=== PATIENT | male | born 1975 | race African-American/Black ===

== ENCOUNTER 2024-07-09 01:33 | Emergency (ER) | payer OTHER, SELFPAY ==
[2024-07-09 01:35] VITALS: BP 207/138; PULSE 112; RESP 16; TEMP 37.4; O2SAT 96; BMI 36.6
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
--- OUTSIDE RECORDS SUMMARY | 2024-07-09 02:24 | XMS_ITS | Clinical Summary ---
Author Organization [facility] Address [address] [place] [address] Care Team Providers Care Licensed Audiologist Name Role Phone Adam Whitney DPIsaiah Primary Care Provider [phone] Allergies No known active allergies Medications losartan-hydroch lorothiazide (HYZAAR) 50-12.5 mg per tablet 11/25/2016 Activ e NIFEdipine (ADALAT CC) 30 MG 24 hr tablet 11/25/2016 Act moose ibuprofen-famoti dine 800-26.6 mg Tab Take 1 tablet by mouth 2 (two) times daily. 60 tablet 3 12/14/2016 Active Social History Tobacco Use Types Packs/Day Years Used Date Smoking Tobacco: Light Smoker Alcohol Use Standard Drinks/Week Comments Yes 0 (1 standard drink = 0.6 oz pur e alcohol) Sex and Gender Information Value Date Recorded Sex Assigned at Not on file Legal Sex Male 3:32 PM EDT Gender Identity Not on file Sexual Orientation Not on file Last Filed Vital Signs Vital Sign Reading Time Taken Comments Blood Pressure 144/97 12/14/2016 9:35 AM EDT Pulse 68 12/14/2016 9:35 AM EDT Temperature - - Respiratory Rate - - Oxygen Saturation - - Inhaled Oxygen Concentration - - Weight 124.7 kg (275 lb) 12/14/2016 9:35 AM EDT Height 185.4 cm (6' 1) 12/14/2016 9:35 AM EDT Body Mass Index 36.28 12/14/2016 9:35 AM EDT Plan of Treatment Health Maintenance Due Date Last Done Comments CT Colonography 1977 Burt (FIT-DNA every 3 years) 1977 Colonoscopy 1977 Colorectal Cancer Screening 1977 FOBT/iFOBT (every 1 year) 1977 Hepatitis C Screening 1977 Sigmoidoscopy 1977 TdaP/Td Vaccine (1 - Tdap) 1988 Hepatitis B Vaccine (1 of 3 - 19+ 3-dose series) 1996 Influenza Vaccine (#1) 2024 Hepatitis A Vaccine Aged Out No longe r eligible based on patient's age to complete this topic Meningococcal ACWY Vaccine Aged Out N o longer eligible based on patient's age to complete this topic Pneumococcal Vaccine 19-49 y ears At Risk patient Aged Out No longer eligible b ased on patient's age to complete this topic Insurance [facility] Care Teams Licensed Audiologist Relationship Specialty Start Date End Date Adam Whitney DPM PCP - General Podiatry 12/14/16
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
--- OUTSIDE RECORDS SUMMARY | 2024-07-09 02:25 | XMS_ITS ---
Author Organization [facility] [place] [address] Care Team Providers Care Senior Lead Project Manager Name Role Phone Unavailable Unavailable Unavailable Payers Payer Name Policy Type Policy Number Effective Date Expira tion Date [employer] [facility] [employer] [id number] 2023 00:00:0 0 Encounters Start Date/Time End Date/Time Encounter Type Admission Type Attending [facility] Facility Care Department Encounter ID [id number] 00:00:00 2023-11-23 00:00:00 Outpatient Loretta LOZANO [facility] [id number]
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
--- OUTSIDE RECORDS SUMMARY | 2024-07-09 02:25 | XMS_ITS | Encounter Summary ---
Author Organization [facility] Address [address] [place] [address] Care Team Providers Care Lamina Searcher Name Role Phone Unavailable Primary Care Provider Unavailabl e Encounter Details Date Type Department Care Team (Late st Contact Info) Description 08/12/2023 Telephone [facility] Advice Nurse [address] [place] [address] Francisca López, [place] [address] [place] [address] Social History Tobacco Use Types Packs/Day Years Used Date Smoking Tobacco: Every Day Cigarettes Smokeless Tobacco: Former Alcohol Use Standard Drinks/Week Comments Yes 4 (1 standard drink = 0.6 oz pur e alcohol) daily [facility] Utilities Answer Date Recorded In the past 12 months has th e electric, gas, oil, or water [employer] threatened to shut off services in your [...] documented as of this encounter Visit Diagnoses Not on filedocumented in this encounter
[2024-07-09] MEDS: AMLODIPINE 5 MG TABLET PO (02:28)
[2024-07-09 02:36] VITALS: BP 186/123; PULSE 102; RESP 16; O2SAT 96
== END 2024-07-09 02:38 | disposition home or self-care (01) ==
LOC: ED 02:23
PROVIDERS: Emergency Provider Family Medicine
DX: I10 Essential (primary) hypertension (principal); R20.2 Paresthesia of skin
CPT/HCPCS: 93005; 99283; 99284; A9270